=== PATIENT | female | born 1970 | race Caucasian/White ===

== ENCOUNTER 2024-02-23 09:59 | Outpatient (CLI) | payer OTHER | END 2024-02-23 10:00 | disposition home or self-care (01) | LOC: SCSMRI 09:59 | PROVIDERS: ATTEND Family Medicine Sports Medicine | DX: M47.26 Other spondylosis with radiculopathy, lumbar region (principal); M51.16 Intervertebral disc disorders with radiculopathy, lumbar region; M48.061 Spinal stenosis, lumbar region without neurogenic claudication; M48.07 Spinal stenosis, lumbosacral region; M51.35 Other intervertebral disc degeneration, thoracolumbar region | CPT/HCPCS: 72148 ==

== ENCOUNTER 2025-03-02 13:09 | Outpatient (CLI) | payer OTHER, MEDICAID | END 2025-03-02 13:10 | disposition home or self-care (01) | LOC: ULT 13:09 | PROVIDERS: ATTEND Family Medicine | DX: R59.9 Enlarged lymph nodes, unspecified (principal); R60.0 Localized edema | CPT/HCPCS: 76999; 93970 ==